=== PATIENT | male | born 1965 | race Caucasian/White ===

== ENCOUNTER 2016-12-01 10:18 | Emergency (ER) | payer BC ==
[~2016-12-01] VITALS: Ht 180.3 cm; Wt 108.9 kg
--- NOTE | ~2016-12-01 | CR173 ---
[facility] A Service of [facility] & [facility] RADIOLOGY TEXT RESULTS PATIENT: SUNITHA BRAGG LOCATION: CFTX : 61 UNIT #: [id number] AGE: [address]: Vee Pierre SEX: M ORDER DR: [id number] [facility] [address] [place], [place] [address] [id number] MR#: [id number] Acc #: [id number] NAME: SUNITHA BRAGG : 1965 SEX: M STUDY DATE/TIME: 12/01/2016 10:39 UNIT: [facility] ROOM: STUDY DESCRIPTION: CR Knee 3 Views Rt Attending Physician: Vee Pierre P.A.-C. Ordering Physician: Vee Pierre P.A.-C. Primary Care Physician: Glenna Boudreaux M.D. MEDICAL IMAGING REPORT This report is preliminary unless electronic signature is present EXAM Right knee 3 views 12/01/2016 HISTORY Right knee pain for 2 days, hurts to bear weight on right knee swollen right knee for 6 months. No known injury. FINDINGS 3 views of the right knee demonstrate no fracture. The joint space is normally maintained but there is chondrocalcinosis involving both the medial and lateral compartments of the knee. The bones are normally mineralized. There is a small knee joint effusion. IMPRESSION 1. Chondrocalcinosis involving the medial and lateral compartments of the knee. No evidence of fracture. 2. Small knee joint effusion. Dictated by... Vin Sellers M.D. THIS IS AN ELECTRONICALLY VERIFIED REPORT Vin Sellers M.D. at 12/02/2016 6:33 AM LATISHA/cruz TD: 12/01/2016 22:51 JOB #: [id number] MEDICAL IMAGING REPORT Page 1 of 1 COPY
[~2016-12-01 10:18] MED LIST: AMOXICILLIN PO; IBUPROFEN PO; VICODIN PO
== END 2016-12-01 11:40 | disposition home or self-care (01) ==
LOC: CFTX 10:18 → CED 10:18 → CFTX 11:22
DX: M25.461 Effusion, right knee (principal); F17.210 Nicotine dependence, cigarettes, uncomplicated
CPT/HCPCS: 29530; 73562; 99283